=== PATIENT | male | born 1980 | race Caucasian/White ===

== ENCOUNTER 2020-06-18 19:43 | Emergency (ER) | payer MEDICARE, MEDICAID, SELFPAY ==
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
[2020-06-18 19:50] VITALS: BP 150/100; PULSE 109; RESP 16; TEMP 37.4; O2SAT 96
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
[2020-06-18] MEDS: TETANUS,DIPHTHERIA,AC PERTUSSIS ADULT (0.5 ML) BOOSTRIX IM (20:28)
[2020-06-18 20:37] LABS: Basophils Percent Auto 0.3 % (0.2-1.2); Eosinophils Percent Auto 0.2 % (0-4.4); Hematocrit 47.5 % (42.0-52.0); Hemoglobin 16.5 g/dL (14.0-18.0); Immature Granulocyte Absolute 0.03 K/mm3 (0.00-0.031); Immature Granulocyte Percent A 0.2 % (0-0.5); Lymphocytes Absolute Auto 1.69 K/mm3 (0.9-3.2); Lymphocytes Percent Auto 12.9 % (18.3-44.2); Mean Corpuscular HGB Conc 34.7 g/dl (32-36); Mean Corpuscular Hemoglobin 29.7 pg (26-34); Mean Corpuscular Volume 85.4 fl (80-100); Mean Platelet Volume 10.1 fl (7.4-10.4); Monocytes Absolute Auto 0.6 K/mm3 (0.1-0.6); Monocytes Percent Auto 4.9 % (2.6-8.5); Neutrophils Absolute Auto 10.7 K/mm3 (1.3-6.7); Neutrophils Percent Auto 81.5 % (45.5-73.1); Platelet Count Result 250 k/mm3 (150-375); Red Blood Count 5.56 M/mm3 (4.6-6.20); Red Cell Distribution Width 12.8 % (11.5-14.5); White Blood Count 13.1 K/mm3 (4.5-10.0)
[2020-06-18 20:46] LABS: Add Urine Microscopic? NO; Appearance Urine Clear (Clear); Bilirubin Urine Negative (Negative); Blood Urine Negative (Negative); Color Urine Yellow (Yellow); Glucose Urine UA Negative (Negative); Ketones Urine Negative (Negative); Leukocyte Esterase Ur Negative LEU/UL (Negative); Nitrate Urine Negative (Negative); Protein Urine Negative (Negative); Specific Grav Ur 1.014 (1.001-1.035); Urobilinogen Urine Negative mg/dL (<2.0)
[2020-06-18 20:48] LABS: Ethanol < 10 mg/dL (<10)
[2020-06-18 20:49] LABS: Alanine Aminotransferase 31 U/L (4-50); Albumin Level 4.5 g/dL (3.5-5.1); Alkaline Phosphatase 76 U/L (38-126); Anion Gap 10 mmol/L (8-16); Aspartate Amino Transferase 30 U/L (17-59); Bilirubin,Total 0.4 mg/dL (0.2-1.3); Blood Urea Nitrogen 8 mg/dL (9-20); Calcium 9.7 mg/dL (8.4-10.2); Carbon Dioxide 28 mmol/L (22-30); Chloride 97 mmol/L (98-107); Estimated CRCL calculation 87 ml/min; Estimated Glomerular Filt Rate > 60; Glucose 151 mg/dL (75-110); Potassium 3.5 mmol/L (3.4-5.0); Sodium 135 mmol/L (137-145)
[2020-06-18 21:01] LABS: Amphetamine Screen Urine Negative (Negative); Barbiturate Screen Urine Negative (Negative); Benzodiazepines Screen Urine Negative (Negative); Cannabinoid Screen Urine Positive (Negative); Cocaine Screen Urine Negative (Negative); Methadone Screen Urine Negative (Negative); Opiate Screen Urine Negative (Negative); Phencyclidine Screen Urine Negative (Negative)
[2020-06-18] MEDS: LACTATED RINGERS 1,000 ML 999 ML IV CONT (21:09)
[2020-06-18] MEDS: LIDOCAINE HCL 1% LOCAL INJ 20 ML VIAL INFILTRATE (23:12)
[2020-06-19] VITALS (8 sets, daily range): BP systolic 121–141; BP diastolic 80–91; PULSE 64–79; RESP 14–18; TEMP 36.6; O2SAT 96–98
--- NOTE | 2020-06-19 03:41 | PC.NURSE ---
Pt rested quietly in bed entire stay, pt denied the need for a blanket or hydration from staff.
--- NOTE | 2020-06-19 03:51 | PC.NURSE ---
Currently awaiting placement for patient. Pt is resting calmly in room, will pass on to MONIQUE Macedo. Mother given updated information via phone when she called around 0300.
--- NOTE | 2020-06-19 07:09 | PC.NURSE ---
Assumed care of pt, pt is alert and upright on stretcher. Discussed POC. Breakfast tray ordered. VSS. Lights dimmed, sitter at bedside.
--- NOTE | 2020-06-19 12:02 | PC.NURSE ---
Pt is calm and cooperative, resting on stretcher, alert to verbal stimuli. Food tray ordered for pt. No requests at this time. Lights dimmed, sitter at bedside.
--- NOTE | 2020-06-19 16:25 | PC.NURSE ---
Called and ordered patient a tray at this time.
[2020-06-20 06:10] VITALS: BP 129/88; PULSE 75; RESP 16; TEMP 36.6; O2SAT 99
[2020-06-20 07:14] VITALS: BP 123/91; PULSE 84; RESP 18; O2SAT 96
--- NOTE | 2020-06-20 07:35 | PC.NURSE ---
Mother called to check on patient
[2020-06-20 11:07] VITALS: BP 98/62; PULSE 67; RESP 18; TEMP 37.1; O2SAT 95
[2020-06-20 14:56] VITALS: BP 131/78; PULSE 77; RESP 18; O2SAT 98
[2020-06-20 18:25] VITALS: BP 127/87; PULSE 66; RESP 18; O2SAT 97
--- NOTE | 2020-06-20 18:40 | PC.NURSE ---
Pt wanting to take a shower. Arrangements being made at this time
[2020-06-20] MEDS: PANTOPRAZOLE SOD SESQUIHYDRATE 20 MG TAB PO (20:41)
[2020-06-21 06:53] VITALS: BP 128/96; PULSE 92; RESP 17; TEMP 36.7; O2SAT 97
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
--- NOTE | 2020-06-21 11:10 | PC.NURSE ---
REPORT GIVEN TO MONIQUE MACEDO AT THIS TIME, BEDSIDE, HE HAS ASSUMED PT CARE.
--- NOTE | 2020-06-21 11:45 | PC.NURSE ---
LUNCH ORDER PLACED FOR PATIENT.
[2020-06-21 11:50] LABS: SARS-CoV-2 RNA PCR Negative
[2020-06-21 12:46] VITALS: BP 136/88; PULSE 88; RESP 14; O2SAT 98
[2020-06-21] MEDS: ACETAMINOPHEN 325 MG TABLET 650 MG PO (18:32)
[2020-06-21 18:51] VITALS: BP 140/72; PULSE 94; RESP 16; TEMP 36.9; O2SAT 98
--- NOTE | 2020-06-21 19:16 | PC.NURSE ---
at 1913 on 06/21/2020 Maria L AMAYA from [facility] called and was given report by this RN.
--- NOTE | 2020-06-21 19:20 | PC.NURSE ---
called [facility] to transport patient. ETA [id number]
== END 2020-06-21 19:57 ==
PROVIDERS: Emergency Provider General Practice; Referring Provider Emergency Medicine
DX: F20.0 Paranoid schizophrenia (principal); S21.112A Laceration without foreign body of left front wall of thorax without penetration into thoracic cavity, initial encounter; X78.1XXA Intentional self-harm by knife, initial encounter; Z20.828 Contact with and (suspected) exposure to other viral communicable diseases; Z23 Encounter for immunization
CPT/HCPCS: 12001; 36415; 71045; 71260; 74177; 80053; 80307; 81003; 84443; 85025; 87635; 90471; 90715; 96360; 99285; A9270; C9803; J7120; Q9967; U0003